=== PATIENT | female | born 1965 | race Caucasian/White ===

== ENCOUNTER 2017-11-18 10:01 | Emergency (ER) | payer MEDICAID ==
[~2017-11-18] VITALS: Ht 160 cm; Wt 63.5 kg
[~2017-11-18 10:01] MED LIST: AMITRIPTYLINE H10 MG ORAL; IBUPROFEN600 MG PO; INDOMETHACIN75 MG ORAL; NAPROXEN375 M2 ORAL; NORCO 5-325 TA1 EACH PO; NORCO1 EA ORAL; ROBAXIN500 MG PO; TRAMADOL HCL50 MG ORAL; ZITHROMAX250 MG ORAL; bp meds; flexeril; gabapentin; norco
--- NOTE | 2017-11-18 10:23 | Emergency Room Report ---
History of Present Illness General Chief Complaint: Abdominal Pain Present Illness HPI Patient is a 52-year-old female who presented after increased generalized abdominal pain. The patient was noted to have increased abdominal bloating. She had been seen last night with diagnosis of inguinal hernia and renal stone. Patient denied any flank pain she reported having pain to the upper abdomen. The pain was crampy in nature associated with a large amount of gas. Patient reports having had passed flatus. She denied any vomitingShe reports having prior history laparoscopic surgery at 13. She denies any fever. She denied any black or bloody stools. Denies alcohol use Allergies: Coded Allergies: No Known Allergies (Unverified , 02/18/13) Patient History Past Medical History: see triage record Now: No - NO MENES SINCE 2009 Reviewed Nursing Documentation: PMH: Agreed, PSxH: Agreed Nursing Documentation-PMH Hx Cardiac Problems: Yes - CHF 2 STENTS Hx Hypertension: No - CANCER UNKNOWN WHERE AND METH ABUSE Hx Gastrointestinal Problems: Yes - DIVERTICULITIS, ABD TUMORS Hx Neurological Problems: Yes - MIGRAINES, CHRONIC BACK PAIN Review of Systems All Other Systems: negative except mentioned in HPI Physical Exam Vital Signs Date Time Temp Pulse Resp B/P (MAP) Pulse Ox O2 Delivery O2 Flow Rate FiO2 11/18/17 09:58 98.4 111 16 124/88 99 Room Air Sp02 EP Interpretation: reviewed, normal General Appearance: normal inspection, well appearing, no apparent distress, alert, GCS 15 Head: atraumatic ENT: normal ENT inspection, hearing grossly normal, normal voice Neck: normal inspection, full range of motion, supple, no bony tend Respiratory: normal inspection, lungs clear, normal breath sounds, no respiratory distress, no retraction, no wheezing Cardiovascular #1: regular rate, rhythm, no edema Gastrointestinal: normal inspection, normal bowel sounds, non tender, soft, no guarding, no hernia Genitourinary: no CVA tenderness Musculoskeletal: normal inspection, back normal, normal range of motion Neurologic: normal inspection, alert, responsive, speech normal Psychiatric: normal inspection, judgement/insight normal, mood/affect normal Skin: normal inspection, normal color, no rash Medical Decision Making Diagnostic Impression: Primary Impression: Abdominal pain Additional Impressions: Gastritis Inguinal hernia ER Course Patient presented for abdominal pain. Differential diagnoses included ischemic bowel, appendicitis, perforated viscus, abdominal aortic aneurysm, inferior myocardial infarction, viral gastroenteritis. Because of complexity of patient' s case laboratory testing and imaging studies were ordered. The patient was given IV antiemetics as well as oral pain medications. Patient noted have improvement. Patient had the reducible inguinal hernias. There is no evidence of incarceration or strangulation. Patient was advised to see outpatient surgery for hernia repair. The patient is advised to follow up with primary care doctor in 1-2 days for recheck. Patient is advised to return if any worsening condition or if any changes in status that are concerning. This report is dictated with [employer] granite installer software which may occasionally lead to discrepancies related to use of this software. Labs Test 11/18/17 10:11 11/18/17 10:32 White Blood Count 5.7 K/UL (4.8-10.8) Red Blood Count 4.55 M/UL (4.20-5.40) Hemoglobin 14.2 G/DL (12.0-16.0) Hematocrit 41.4 % (37.0-47.0) Mean Corpuscular Volume 91 FL (80-99) Mean Corpuscular Hemoglobin 31.2 PG (27.0-31.0) Mean Corpuscular Hemoglobin Concent 34.2 G/DL (32.0-36.0) Red Cell Distribution Width 12.3 % (11.6-14.8) Platelet Count 238 K/UL (150-450) Mean Platelet Volume 7.5 FL (6.5-10.1) Neutrophils (%) (Auto) 53.3 % (45.0-75.0) Lymphocytes (%) (Auto) 30.4 % (20.0-45.0) Monocytes (%) (Auto) 8.7 % (1.0-10.0) Eosinophils (%) (Auto) 6.4 % (0.0-3.0) Basophils (%) (Auto) 1.3 % (0.0-2.0) Sodium Level 138 MMOL/L (136-145) Potassium Level 3.9 MMOL/L (3.5-5.1) Chloride Level 103 MMOL/L (98-107) Carbon Dioxide Level 28 MMOL/L (21-32) Anion Gap 7 mmol/L (5-15) Blood Urea Nitrogen 8 mg/dL (7-18) Creatinine 0.7 MG/DL (0.55-1.30) Estimat Glomerular Filtration Rate > 60 mL/min (>60) Glucose Level 87 MG/DL (74-106) Calcium Level 9.2 MG/DL (8.5-10.1) Total Bilirubin 0.3 MG/DL (0.2-1.0) Aspartate Amino Transf (AST/SGOT) 19 U/L (15-37) Alanine Aminotransferase (ALT/SGPT) 31 U/L (12-78) Alkaline Phosphatase 120 U/L (46-116) Total Protein 7.0 G/DL (6.4-8.2) Albumin 3.6 G/DL (3.4-5.0) Globulin 3.4 g/dL Albumin/Globulin Ratio 1.1 (1.0-2.7) Lipase 102 U/L (73-393) Urine Color Pale yellow Urine Appearance Clear Urine pH 7 (4.5-8.0) Urine Specific [place] 1.010 (1.005-1.035) Urine Protein Negative (NEGATIVE) Urine Glucose (UA) Negative (NEGATIVE) Urine Ketones Negative (NEGATIVE) Urine Occult Blood Negative (NEGATIVE) Urine Nitrite Negative (NEGATIVE) Urine Bilirubin Negative (NEGATIVE) Urine Urobilinogen Normal MG/DL (0.0-1.0) Urine Leukocyte Esterase 1+ (NEGATIVE) Urine RBC 0-2 /HPF (0 - 2) Urine WBC 2-4 /HPF (0 - 2) Urine Squamous Epithelial Cells Moderate /LPF (NONE/OCC) Urine Bacteria Few /HPF (NONE) Last Vital Signs Date Time Temp Pulse Resp B/P (MAP) Pulse Ox O2 Delivery O2 Flow Rate FiO2 11/18/17 09:58 98.4 111 16 124/88 99 Room Air Status: improved Disposition: HOME, SELF-CARE Condition: Stable Scripts Famotidine (PEPCID) 20 Mg Tablet 20 MG ORAL BEDTIME, #7 TAB 0 Refills Prov: Catarino Woods 11/18/17 Catarino Woods Nov 18, 2017 10:23
[2017-11-18 10:27] VITALS: BP 120/86
[2017-11-18] MEDS ORDERED: Dicyclomine HCl 10mg/5ml oral soln ORAL ONE (10:30)
[2017-11-18 10:37] LABS: BASOPHILS % (AUTO) 1.3 % (0.0-2.0); EOSINOPHILS % (AUTO) 6.4 % (0.0-3.0); HEMATOCRIT 41.4 % (37.0-47.0); HEMOGLOBIN 14.2 G/DL (12.0-16.0); LYMPHOCYTES % (AUTO) 30.4 % (20.0-45.0); MEAN CORPUSCULAR VOLUME 91 FL (80-99); MONOCYTES % (AUTO) 8.7 % (1.0-10.0); NEUTROPHILS % (AUTO) 53.3 % (45.0-75.0); PLATELET COUNT 238 K/UL (150-450); RED BLOOD COUNT 4.55 M/UL (4.20-5.40); RED CELL DISTRIBUTION WIDTH 12.3 % (11.6-14.8); WHITE BLOOD COUNT 5.7 K/UL (4.8-10.8)
[2017-11-18 10:44] LABS: ANION GAP 7 mmol/L (5-15); BLOOD UREA NITROGEN 8 mg/dL (7-18); CALCIUM 9.2 MG/DL (8.5-10.1); CARBON DIOXIDE 28 MMOL/L (21-32); CHLORIDE 103 MMOL/L (98-107); CREATININE 0.7 MG/DL (0.55-1.30); POTASSIUM 3.9 MMOL/L (3.5-5.1); SODIUM 138 MMOL/L (136-145)
[2017-11-18 10:49] LABS: ALANINE AMINOTRANSFERASE 31 U/L (12-78); ALBUMIN 3.6 G/DL (3.4-5.0); ALBUMIN/GLOBULIN RATIO 1.1 (1.0-2.7); ALKALINE PHOSPHATASE 120 U/L (46-116); ASPARTATE AMINO TRANSFERASE 19 U/L (15-37); BILIRUBIN,TOTAL 0.3 MG/DL (0.2-1.0)
[2017-11-18 11:05] LABS: APPEARANCE,URINE CLEAR; BILIRUBIN, URINE NEGATIVE (NEGATIVE); COLOR,URINE PALE YELLOW; GLUCOSE, URINE (UA) NEGATIVE (NEGATIVE); KETONES,URINE NEGATIVE (NEGATIVE); LEUKOCYTE ESTERASE ,URINE 1+ (NEGATIVE); NITRITE,URINE NEGATIVE (NEGATIVE); PH,URINE 7 (4.5-8.0); PROTEIN,URINE NEGATIVE (NEGATIVE); UROBILINOGEN,URINE NORMAL MG/DL (0.0-1.0)
[2017-11-18] MEDS ORDERED: PEPCID20 MG ORAL (11:23)
[2017-11-18 11:46] VITALS: BP 121/84
[2017-11-27] MEDS ORDERED: GABAPENTIN300 MG ORAL (13:53)
[2017-11-27] MEDS ORDERED: ASPIRIN81 MG ORAL (13:53)
[2017-11-27] MEDS ORDERED: ATORVASTATIN CA40 MG ORAL (13:53)
[2017-11-27] MEDS ORDERED: COLACE100 MG ORAL (13:53)
[2017-11-27] MEDS ORDERED: BRILINTA90 MG PO (13:53)
[2017-11-27] MEDS ORDERED: METOPROLOL SUCC25 MG ORAL (13:53)
[2017-11-27] MEDS ORDERED: LISINOPRIL20 MG ORAL (13:53)
[2017-11-27] MEDS ORDERED: OMEPRAZOLE40 M1 ORAL (13:53)
[2017-11-27] MEDS ORDERED: CYCLOBENZAPRINE10 MG ORAL (13:53)
[2017-11-27] MEDS ORDERED: DICYCLOMINE HCL10 MG PO (13:53)
== END 2017-11-18 11:47 | disposition home or self-care (01) ==
LOC: EDBD 10:01 → EMR 10:52
DX: R10.84 Generalized abdominal pain (principal); K29.70 Gastritis, unspecified, without bleeding; K40.90 Unilateral inguinal hernia, without obstruction or gangrene, not specified as recurrent; I50.9 Heart failure, unspecified; Z95.5 Presence of coronary angioplasty implant and graft; Z87.19 Personal history of other diseases of the digestive system
CPT/HCPCS: 36415; 80053; 81003; 83690; 85025; 99284

== ENCOUNTER → 2017-11-27 | Emergency (ER) | payer MEDICAID ==
[~2017-11-27] VITALS: Ht 165.1 cm; Wt 74.8 kg
[~2017-11-27] MED LIST changes: +ASPIRIN81 MG ORAL; +ATORVASTATIN CA40 MG ORAL; +BRILINTA90 MG PO; +COLACE100 MG ORAL; +CYCLOBENZAPRINE10 MG ORAL; +DICYCLOMINE HCL10 MG PO; +GABAPENTIN300 MG ORAL; +LISINOPRIL20 MG ORAL; +METOPROLOL SUCC25 MG ORAL; +OMEPRAZOLE40 M1 ORAL; +PEPCID20 MG ORAL
--- NOTE | 2017-11-27 12:28 | Emergency Room Report ---
History of Present Illness General Chief Complaint: Chest Pain Source: Patient Present Illness HPI 52-year-old female presents to the emergency department complaining of several intermittent episodes of palpitations since this a.m. Patient denies chest pain she denies shortness of breath she reports that she does temporarily feel dizzy. Upon arrival patient states that her symptoms resolved however when she got up to go to the bathroom to give urine her symptoms returned. She states that she had a near syncopal episode yesterday she denies hitting her head. She reports having weakness that resolved after one hour post near syncopal episode. She denies fevers or chills she reports vomiting and diarrhea "for a long time". She has a history of ID, TIA, HTN, hyperlipidemia and Psych. Patient takes blood thinning medication. Denies recent travel. She denies cough or sputum production. Denies drug use, night sweats or significant changes in weight. She denies lower extremity edema or calf pains.Denies Changes in Vision, Sensation, paresthesias, or a sudden severe headache. Allergies: Coded Allergies: No Known Allergies (Unverified , 02/18/13) Patient History Past Medical History: HTN, ID, CHF, GERD, migraines, other - hx of TIA Now: No Reviewed Nursing Documentation: PMH: Agreed, PSxH: Agreed Nursing Documentation-PMH Hx Cardiac Problems: Yes Hx Hypertension: No - CANCER UNKNOWN WHERE AND METH ABUSE Hx Diabetes: Yes Hx Gastrointestinal Problems: Yes - DIVERTICULITIS, ABD TUMORS Hx Neurological Problems: Yes - MIGRAINES, CHRONIC BACK PAIN Review of Systems All Other Systems: negative except mentioned in HPI Physical Exam Vital Signs Date Time Temp Pulse Resp B/P (MAP) Pulse Ox O2 Delivery O2 Flow Rate FiO2 11/27/17 12:02 97.8 76 16 110/70 98 97.9 Sp02 EP Interpretation: reviewed, normal General Appearance: no apparent distress, alert, GCS 15, non-toxic Head: normocephalic, atraumatic ENT: hearing grossly normal, normal voice Neck: full range of motion Respiratory: chest non-tender, lungs clear, normal breath sounds, no respiratory distress, no accessory muscle use, no wheezing, speaking full sentences Cardiovascular #1: regular rate, rhythm, no edema, no JVD, normal capillary refill Gastrointestinal: normal bowel sounds, non tender, soft Musculoskeletal: back normal, gait/station normal, normal range of motion, non- tender Neurologic: alert, oriented x3, responsive, motor strength/tone normal, sensory intact, normal gait, speech normal, grossly normal Psychiatric: judgement/insight normal Skin: normal color, no rash, warm/dry, well hydrated Medical Decision Making PA Attestation Dr. Buchanan is my supervising Physician whom patient management has been discussed with. Diagnostic Impression: Primary Impression: Intermittent palpitations ER Course 52-year-old female presents to the emergency department complaining of several intermittent episodes of palpitations since this a.m. Patient denies chest pain she denies shortness of breath she reports that she does temporarily feel dizzy. Upon arrival patient states that her symptoms resolved however when she got up to go to the bathroom to give urine her symptoms returned. She states that she had a near syncopal episode yesterday she denies hitting her head. She reports having weakness that resolved after one hour post near syncopal episode. She denies fevers or chills she reports vomiting and diarrhea "for a long time". She has a history of ID, TIA, HTN, hyperlipidemia and Psych. Patient takes blood thinning medication. Denies recent travel. She denies cough or sputum production. Denies drug use, night sweats or significant changes in weight. She denies lower extremity edema or calf pains.Denies Changes in Vision, Sensation, paresthesias, or a sudden severe headache. Ddx considered but are not limited to ID, pneumonia, contusion, costochondritis , PE, ACS, Shoulder strain, Chest wall contusion. aortic dissection. Vital signs: are WNL, pt. is afebrile H&PE are most consistent with intermittent palpitations ORDERS: - OrthoStatic VS: Negative - EKBpm NSR -CBC: Unremarkable -CMP: Unremarkable -PT/PTT: WNL -Troponins : WNL CXR: Unremarkable -UDS: negative -UA: WNL -TSH: mildly elevated ED INTERVENTIONS: - PT. placed on cardiac monitoring. Frequent re-evaluations: pt. continues to be non-tachycardic without return of palpitations. BP WNL and stable. d/w pt. that she should contact and follow up with her oil seal assembler and her PCP within 48 hours and to bring a copy of her lab work for further evaluation of abnormal TSH results. Pt. also given a copy of her EKG to take with her. DISCHARGE: At this time pt. is stable for d/c to home. Will provide printed patient care instructions, and any necessary prescriptions. Care plan and follow up instructions have been discussed with the patient prior to discharge. Labs Test 11/27/17 12:20 White Blood Count 6.7 K/UL (4.8-10.8) Red Blood Count 4.56 M/UL (4.20-5.40) Hemoglobin 14.1 G/DL (12.0-16.0) Hematocrit 41.6 % (37.0-47.0) Mean Corpuscular Volume 91 FL (80-99) Mean Corpuscular Hemoglobin 30.8 PG (27.0-31.0) Mean Corpuscular Hemoglobin Concent 33.8 G/DL (32.0-36.0) Red Cell Distribution Width 12.3 % (11.6-14.8) Platelet Count 263 K/UL (150-450) Mean Platelet Volume 7.5 FL (6.5-10.1) Neutrophils (%) (Auto) 51.6 % (45.0-75.0) Lymphocytes (%) (Auto) 32.2 % (20.0-45.0) Monocytes (%) (Auto) 8.1 % (1.0-10.0) Eosinophils (%) (Auto) 6.7 % (0.0-3.0) Basophils (%) (Auto) 1.4 % (0.0-2.0) Prothrombin Time 9.8 SEC (9.30-11.50) Prothromb Time International Ratio 0.9 (0.9-1.1) Activated Partial Thromboplast Time 28 SEC (23-33) Urine Color Pale yellow Urine Appearance Clear Urine pH 7 (4.5-8.0) Urine Specific [place] 1.010 (1.005-1.035) Urine Protein Negative (NEGATIVE) Urine Glucose (UA) Negative (NEGATIVE) Urine Ketones Negative (NEGATIVE) Urine Occult Blood Negative (NEGATIVE) Urine Nitrite Negative (NEGATIVE) Urine Bilirubin Negative (NEGATIVE) Urine Urobilinogen Normal MG/DL (0.0-1.0) Urine Leukocyte Esterase Negative (NEGATIVE) Sodium Level 135 MMOL/L (136-145) Potassium Level 4.2 MMOL/L (3.5-5.1) Chloride Level 99 MMOL/L (98-107) Carbon Dioxide Level 30 MMOL/L (21-32) Anion Gap 6 mmol/L (5-15) Blood Urea Nitrogen 14 mg/dL (7-18) Creatinine 1.0 MG/DL (0.55-1.30) Estimat Glomerular Filtration Rate 58.0 mL/min (>60) Glucose Level 88 MG/DL (74-106) Calcium Level 9.8 MG/DL (8.5-10.1) Total Bilirubin 0.2 MG/DL (0.2-1.0) Aspartate Amino Transf (AST/SGOT) 26 U/L (15-37) Alanine Aminotransferase (ALT/SGPT) 39 U/L (12-78) Alkaline Phosphatase 124 U/L (46-116) Total Creatine Kinase 184 U/L (26-308) Troponin I 0.017 ng/mL (0.000-0.056) Pro-B-Type Natriuretic Peptide 117 pg/mL (0-125) Total Protein 7.6 G/DL (6.4-8.2) Albumin 4.0 G/DL (3.4-5.0) Globulin 3.6 g/dL Albumin/Globulin Ratio 1.1 (1.0-2.7) Thyroid Stimulating Hormone (TSH) 5.478 uiU/mL (0.358-3.740) Urine Opiates Screen Negative (NEGATIVE) Urine Barbiturates Screen Negative (NEGATIVE) Phencyclidine (PCP) Screen Negative (NEGATIVE) Urine Amphetamines Screen Negative (NEGATIVE) Urine Benzodiazepines Screen Negative (NEGATIVE) Urine Cocaine Screen Negative (NEGATIVE) Urine Marijuana (THC) Screen Negative (NEGATIVE) EKG Diagnostic Results EP Interpretation: Dr. Buchanan Rate: normal - 72 bpm Rhythm: NSR ST Segments: no acute changes Other Impression T-wave inversion in V2 ASA given to the pt in ED: No PA Scribe Text this interpretation was scribed by DEMI Griffith Chest X-Ray Diagnostic Results Chest X-Ray Diagnostic Results : Chest X-Ray Ordered: Yes # of Views/Limited/Complete: 1 View Indication: Chest Pain EP Interpretation: Yes PA Xray: Interpretation reviewed, by supervising MD, and agrees with findings. Interpretation: no consolidation, no effusion, no pneumothorax, no acute cardiopulmonary disease Impression: No acute disease Electronically Signed by: Pam Griffith PA-C Last Vital Signs Date Time Temp Pulse Resp B/P (MAP) Pulse Ox O2 Delivery O2 Flow Rate FiO2 11/27/17 12:02 97.8 76 16 110/70 98 97.9 Disposition: HOME, SELF-CARE Condition: Stable Patient Instructions: Palpitations Additional Instructions: Continue to take any previously prescribed medications as directed. Follow up with your GOSPEL WORKER within 1-2 days, even if your symptoms have resolved. --Please review list of primary care clinics, if you do not already have a primary care provider -- Your TSH level was elevated, have your primary care provided evaluate your thyroid function. Return sooner to ED if new symptoms occur, or current symptoms become worse. - Please note that this Emergency Department Report was dictated using [employer] machine operator technology software, occasionally this can lead to erroneous entry secondary to interpretation by the dictation equipment. Pam Griffith Nov 27, 2017 12:28
[2017-11-27 12:36] VITALS: BP 106/72
[2017-11-27 12:43] LABS: BASOPHILS % (AUTO) 1.4 % (0.0-2.0); EOSINOPHILS % (AUTO) 6.7 % (0.0-3.0); HEMATOCRIT 41.6 % (37.0-47.0); HEMOGLOBIN 14.1 G/DL (12.0-16.0); LYMPHOCYTES % (AUTO) 32.2 % (20.0-45.0); MEAN CORPUSCULAR VOLUME 91 FL (80-99); MONOCYTES % (AUTO) 8.1 % (1.0-10.0); NEUTROPHILS % (AUTO) 51.6 % (45.0-75.0); PLATELET COUNT 263 K/UL (150-450); RED BLOOD COUNT 4.56 M/UL (4.20-5.40); RED CELL DISTRIBUTION WIDTH 12.3 % (11.6-14.8); WHITE BLOOD COUNT 6.7 K/UL (4.8-10.8)
[2017-11-27 12:46] LABS: APPEARANCE,URINE CLEAR; BILIRUBIN, URINE NEGATIVE (NEGATIVE); COLOR,URINE PALE YELLOW; GLUCOSE, URINE (UA) NEGATIVE (NEGATIVE); KETONES,URINE NEGATIVE (NEGATIVE); LEUKOCYTE ESTERASE ,URINE NEGATIVE (NEGATIVE); NITRITE,URINE NEGATIVE (NEGATIVE); PH,URINE 7 (4.5-8.0); PROTEIN,URINE NEGATIVE (NEGATIVE); UROBILINOGEN,URINE NORMAL MG/DL (0.0-1.0)
[2017-11-27 12:49] VITALS: BP_SYST 101; BP_SYST 96; BP_SYST 98; BP_DIAS 64; BP_DIAS 70; BP_DIAS 78
[2017-11-27 13:02] LABS: INR 0.9 (0.9-1.1)
[2017-11-27 13:14] LABS: ANION GAP 6 mmol/L (5-15); BLOOD UREA NITROGEN 14 mg/dL (7-18); CALCIUM 9.8 MG/DL (8.5-10.1); CARBON DIOXIDE 30 MMOL/L (21-32); CHLORIDE 99 MMOL/L (98-107); POTASSIUM 4.2 MMOL/L (3.5-5.1); SODIUM 135 MMOL/L (136-145)
[2017-11-27 13:20] LABS: CREATINE KINASE 184 U/L (26-308)
[2017-11-27 13:24] LABS: ALANINE AMINOTRANSFERASE 39 U/L (12-78); ALBUMIN/GLOBULIN RATIO 1.1 (1.0-2.7); ALKALINE PHOSPHATASE 124 U/L (46-116); ASPARTATE AMINO TRANSFERASE 26 U/L (15-37); BILIRUBIN,TOTAL 0.2 MG/DL (0.2-1.0)
[2017-11-27 14:19] VITALS: BP 104/63
--- NOTE | 2017-11-27 14:23 | Diagnostic Imaging Report ---
Indication: Chest pain Technique: One view of the chest Comparison: none Findings: Lungs and pleural spaces are clear. Heart size is normal. Thoracolumbar scoliotic deformity is noted. Impression: No acute process
--- NOTE | 2017-11-28 15:22 | Cardiology Report ---
APPROVED REPORT EKG Measurement Heart [id number] Normal sinus rhythm Possible Left atrial enlargement Incomplete right bundle branch block Borderline ECG
== END | disposition home or self-care (01) ==
LOC: EDUNIT# 11:36 → EDBD 12:01 → EMR 12:25
DX: R00.2 Palpitations (principal); E11.9 Type 2 diabetes mellitus without complications; K57.90 Diverticulosis of intestine, part unspecified, without perforation or abscess without bleeding; G89.29 Other chronic pain; I10 Essential (primary) hypertension; I25.2 Old myocardial infarction; I50.9 Heart failure, unspecified; K21.9 Gastro-esophageal reflux disease without esophagitis; Z86.73 Personal history of transient ischemic attack (TIA), and cerebral infarction without residual deficits; E78.5 Hyperlipidemia, unspecified
CPT/HCPCS: 36415; 71045; 80053; 80307; 81003; 82550; 83880; 84443; 84484; 85025; 85610; 85730; 93005; 96361; 96374; 99284

== ENCOUNTER 2018-04-04 14:54 | Emergency (ER) | payer MEDICAID ==
[~2018-04-04] VITALS: Ht 165.1 cm; Wt 72.6 kg
--- NOTE | 2018-04-04 14:57 | Emergency Room Report ---
History of Present Illness General Chief Complaint: Chest Pain Source: Patient Present Illness HPI Patient is a 52-year-old female who presented after increased chest discomfort. Patient reports having increased chest pressure starting about 1-1/2 hours prior to arrival. Patient been seen by EMS. Patient been given aspirin the patient was having prior history of coronary artery disease and is currently a smoker. She reports having some increased pulling sensation and tightness to the upper abdomen. She reports having prior history of drug use but denies recent drugs and states she's been clean for several months. The patient reports having onset during exertion. She reports having some bilateral arm numbness associated with some pain in the neck and jaw. Reports having primary care physician in [place]. Allergies: Coded Allergies: No Known Allergies (Unverified , 02/18/13) Patient History Past Medical History: other - Raynauds Reviewed Nursing Documentation: PMH: Agreed; PSxH: Agreed Review of Systems All Other Systems: negative except mentioned in HPI Physical Exam Vital Signs Date Time Temp Pulse Resp B/P (MAP) Pulse Ox O2 Delivery O2 Flow Rate FiO2 04/04/18 14:41 97.0 107 18 113/68 98 Nasal Cannula 97.0 Sp02 EP Interpretation: reviewed, normal General Appearance: normal inspection, well appearing, no apparent distress, alert, GCS 15, Chronically Ill Head: atraumatic ENT: normal ENT inspection, hearing grossly normal, normal voice Neck: normal inspection, full range of motion, supple, no bony tend Respiratory: normal inspection, lungs clear, normal breath sounds, no respiratory distress, no retraction, no wheezing Cardiovascular #1: regular rate, rhythm, no edema Gastrointestinal: normal inspection, normal bowel sounds, non tender, soft, no guarding, no hernia Genitourinary: no CVA tenderness Musculoskeletal: normal inspection, back normal, normal range of motion Neurologic: normal inspection, alert, oriented x3, responsive, side stitching machine operator III-XII nml as tested, speech normal Psychiatric: normal inspection, judgement/insight normal, mood/affect normal Skin: normal inspection, normal color, no rash Medical Decision Making Diagnostic Impression: Primary Impression: Chest pain Additional Impression: ACS (acute coronary syndrome) ER Course patient presented for chest pain. Differential diagnosis included but was not limited to acute coronary syndrome, pulmonary embolism, pneumonia, aortic dissection, shingles, pneumothorax, aortic dissection, esophageal rupture, pericarditis. Because of complexity of patient's case laboratory testing and imaging studies were ordered.The patient was given aspirin by EMS. The patient was noted to have some concerning past medical history in terms of prior coronary disease. The patient was discussed with from [facility] who agreed to accept the patient in transfer for [facility] facility. Patient appears to be stable for transfer. Labs Test 04/04/18 15:02 04/04/18 15:55 White Blood Count 8.3 K/UL (4.8-10.8) Red Blood Count 4.34 M/UL (4.20-5.40) Hemoglobin 13.7 G/DL (12.0-16.0) Hematocrit 39.3 % (37.0-47.0) Mean Corpuscular Volume 91 FL (80-99) Mean Corpuscular Hemoglobin 31.7 PG (27.0-31.0) Mean Corpuscular Hemoglobin Concent 34.9 G/DL (32.0-36.0) Red Cell Distribution Width 12.0 % (11.6-14.8) Platelet Count 265 K/UL (150-450) Mean Platelet Volume 7.6 FL (6.5-10.1) Neutrophils (%) (Auto) 58.6 % (45.0-75.0) Lymphocytes (%) (Auto) 26.8 % (20.0-45.0) Monocytes (%) (Auto) 8.8 % (1.0-10.0) Eosinophils (%) (Auto) 4.3 % (0.0-3.0) Basophils (%) (Auto) 1.6 % (0.0-2.0) Sodium Level 141 MMOL/L (136-145) Potassium Level 3.2 MMOL/L (3.5-5.1) Chloride Level 103 MMOL/L (98-107) Carbon Dioxide Level 24 MMOL/L (21-32) Anion Gap 14 mmol/L (5-15) Blood Urea Nitrogen 10 mg/dL (7-18) Creatinine 0.8 MG/DL (0.55-1.30) Estimat Glomerular Filtration Rate > 60 mL/min (>60) Glucose Level 133 MG/DL (74-106) Calcium Level 9.0 MG/DL (8.5-10.1) Total Bilirubin 0.4 MG/DL (0.2-1.0) Aspartate Amino Transf (AST/SGOT) 24 U/L (15-37) Alanine Aminotransferase (ALT/SGPT) 32 U/L (12-78) Alkaline Phosphatase 120 U/L (46-116) Total Creatine Kinase 313 U/L (26-308) Creatine Kinase MB 5.3 NG/ML (0.0-3.6) Creatine Kinase MB Relative Index 1.6 Troponin I 0.000 ng/mL (0.000-0.056) Pro-B-Type Natriuretic Peptide 248 pg/mL (0-125) Total Protein 7.1 G/DL (6.4-8.2) Albumin 3.6 G/DL (3.4-5.0) Globulin 3.5 g/dL Albumin/Globulin Ratio 1.0 (1.0-2.7) Urine Color Yellow Urine Appearance Clear Urine pH 5 (4.5-8.0) Urine Specific [place] 1.020 (1.005-1.035) Urine Protein 1+ (NEGATIVE) Urine Glucose (UA) Negative (NEGATIVE) Urine Ketones Negative (NEGATIVE) Urine Occult Blood 1+ (NEGATIVE) Urine Nitrite Negative (NEGATIVE) Urine Bilirubin Negative (NEGATIVE) Urine Urobilinogen 4 MG/DL (0.0-1.0) Urine Leukocyte Esterase 1+ (NEGATIVE) Urine RBC 2-4 /HPF (0 - 2) Urine WBC 0-2 /HPF (0 - 2) Urine Squamous Epithelial Cells Few /LPF (NONE/OCC) Urine Bacteria Few /HPF (NONE) Last Vital Signs Date Time Temp Pulse Resp B/P (MAP) Pulse Ox O2 Delivery O2 Flow Rate FiO2 04/04/18 14:41 97.0 107 18 113/68 98 Nasal Cannula 97.0 Status: improved Disposition: XFER SHT-TRM HOSP Condition: Stable Catarino Woods MD Apr 04, 2018 14:57
[2018-04-04 15:11] VITALS: BP 107/77
[2018-04-04] MEDS ORDERED: Albuterol/Ipratropium 3ml neb HHN ONE (15:30)
--- NOTE | 2018-04-04 15:36 | Diagnostic Imaging Report ---
Indication: Dyspnea Comparison: 11/27/2017 A single view chest radiograph was obtained. Findings: Cardiomediastinal appearance is within normal limits for age. Pulmonary vascularity is appropriate. The diaphragmatic contour is smooth and costophrenic angles are sharp. No pleural effusions are identified. The bones are unremarkable. Impression: No acute findings
[2018-04-04 15:39] LABS: BASOPHILS % (AUTO) 1.6 % (0.0-2.0); EOSINOPHILS % (AUTO) 4.3 % (0.0-3.0); HEMATOCRIT 39.3 % (37.0-47.0); HEMOGLOBIN 13.7 G/DL (12.0-16.0); LYMPHOCYTES % (AUTO) 26.8 % (20.0-45.0); MEAN CORPUSCULAR VOLUME 91 FL (80-99); MONOCYTES % (AUTO) 8.8 % (1.0-10.0); NEUTROPHILS % (AUTO) 58.6 % (45.0-75.0); PLATELET COUNT 265 K/UL (150-450); RED BLOOD COUNT 4.34 M/UL (4.20-5.40); WHITE BLOOD COUNT 8.3 K/UL (4.8-10.8)
[2018-04-04 15:55] LABS: ANION GAP 14 mmol/L (5-15); BLOOD UREA NITROGEN 10 mg/dL (7-18); CARBON DIOXIDE 24 MMOL/L (21-32); CHLORIDE 103 MMOL/L (98-107); CREATININE 0.8 MG/DL (0.55-1.30); POTASSIUM 3.2 MMOL/L (3.5-5.1); SODIUM 141 MMOL/L (136-145)
[2018-04-04 16:06] LABS: ALANINE AMINOTRANSFERASE 32 U/L (12-78); ALBUMIN 3.6 G/DL (3.4-5.0); ALKALINE PHOSPHATASE 120 U/L (46-116); ASPARTATE AMINO TRANSFERASE 24 U/L (15-37); BILIRUBIN,TOTAL 0.4 MG/DL (0.2-1.0); CKMB 5.3 NG/ML (0.0-3.6); CREATINE KINASE 313 U/L (26-308)
[2018-04-04 16:31] LABS: APPEARANCE,URINE CLEAR; BILIRUBIN, URINE NEGATIVE (NEGATIVE); GLUCOSE, URINE (UA) NEGATIVE (NEGATIVE); KETONES,URINE NEGATIVE (NEGATIVE); LEUKOCYTE ESTERASE ,URINE 1+ (NEGATIVE); NITRITE,URINE NEGATIVE (NEGATIVE); PH,URINE 5 (4.5-8.0); PROTEIN,URINE 1+ (NEGATIVE); UROBILINOGEN,URINE 4 MG/DL (0.0-1.0)
[2018-04-04 16:35] LABS: COLOR,URINE YELLOW
[2018-04-04 18:50] VITALS: BP 107/77
== END 2018-04-04 18:51 | disposition left against medical advice (07) ==
LOC: EDBD 14:54 → EMR 15:26
DX: I24.9 Acute ischemic heart disease, unspecified (principal)
CPT/HCPCS: 36415; 71045; 80053; 81003; 82550; 82553; 83880; 84484; 85025; 93005; 94640; 94664; 99283; J7620; J8499

== ENCOUNTER 2018-04-24 19:13 | Emergency (ER) | payer MEDICAID ==
[~2018-04-24] VITALS: Ht 160 cm; Wt 61.7 kg
[~2018-04-24 19:13] MED LIST changes: +GABAPENTIN100 MG ORAL; +LISINOPRIL5 MG ORAL; +METOPROLOL TART25 MG ORAL; +OMEPRAZOLE10 M1 ORAL
[2018-04-24 19:25] VITALS: BP 144/92
[2018-04-24 20:25] VITALS: BP 136/92
[2018-04-24 21:25] VITALS: BP 138/88
[2018-04-24 21:37] LABS: BASOPHILS % (AUTO) 1.6 % (0.0-2.0); EOSINOPHILS % (AUTO) 4.2 % (0.0-3.0); HEMATOCRIT 42.5 % (37.0-47.0); HEMOGLOBIN 14.6 G/DL (12.0-16.0); MEAN CORPUSCULAR VOLUME 89 FL (80-99); MONOCYTES % (AUTO) 7.2 % (1.0-10.0); NEUTROPHILS % (AUTO) 59.1 % (45.0-75.0); PLATELET COUNT 291 K/UL (150-450); RED BLOOD COUNT 4.76 M/UL (4.20-5.40); WHITE BLOOD COUNT 8.9 K/UL (4.8-10.8)
--- NOTE | 2018-04-24 21:42 | Emergency Room Report ---
History of Present Illness General Chief Complaint: Abdominal Pain Source: Patient (Pam Griffith) Present Illness HPI 52-year-old female presents to emergency Department complaining of choking sensation and inability to intake oral fluids or solids. 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 Patient states that onset of her symptoms were 3 days ago and her symptoms have been progressive. denies SOB, or dyspnea. Denies cough, fevers, or chills. pt, reports vomiting food/liquids after attempts to eat. pt. denies nausea. pt. reports some 4/10 in severity epigastric pain. (Pam Griffith) Allergies: Coded Allergies: No Known Allergies (Unverified , 02/18/13) Patient History Past Medical History: see triage record Past Surgical History: none Pertinent Family History: none Now: No (Pam Griffith) Nursing Documentation-H Hx Cardiac Problems: Yes - CHF, stent Hx Hypertension: Yes Hx Diabetes: Yes Hx Gastrointestinal Problems: Yes - ulcer, hernia Hx Neurological Problems: Yes - MIGRAINES, CHRONIC BACK PAIN (Pam Griffith) Review of Systems All Other Systems: negative except mentioned in HPI (Pam Griffith) Physical Exam Vital Signs Date Time Temp Pulse Resp B/P (MAP) Pulse Ox O2 Delivery O2 Flow Rate FiO2 04/24/18 19:08 97.7 90 18 144/92 100 Room Air 97.7 Sp02 EP Interpretation: reviewed, normal General Appearance: no apparent distress, alert, GCS 15, non-toxic Head: normocephalic, atraumatic Eyes: bilateral eye normal inspection, bilateral eye PERRL ENT: hearing grossly normal, normal pharynx, normal voice Neck: full range of motion, supple, no bony tend Respiratory: chest non-tender, lungs clear, normal breath sounds, no wheezing, speaking full sentences Cardiovascular #1: regular rate, rhythm, normal capillary refill Gastrointestinal: normal bowel sounds, non tender, soft Rectal: deferred Genitourinary: normal inspection Musculoskeletal: back normal, gait/station normal, normal range of motion, non- tender Neurologic: alert, oriented x3, responsive, motor strength/tone normal, sensory intact, normal gait, speech normal, grossly normal Psychiatric: judgement/insight normal Skin: normal color, no rash, warm/dry, well hydrated Lymphatic: no adenopathy (Pam Griffith) Medical Decision Making PA Attestation Dr. Rodriguez is my supervising Physician whom patient management has been discussed with. (Pam Griffith) Diagnostic Impression: Primary Impression: Schatzki's ring Additional Impressions: History of esophageal dilatation Dysphagia Qualified Codes: R13.10 - Dysphagia, unspecified ER Course 52-year-old female presents to emergency Department complaining of choking sensation and inability to intake oral fluids or solids. 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 Patient states that onset of her symptoms were 3 days ago and her symptoms have been progressive. denies SOB, or dyspnea. Denies cough, fevers, or chills. pt, reports vomiting food/liquids after attempts to eat. pt. denies nausea. pt. reports some 4/10 in severity epigastric pain. Ddx considered but are not limited to Esophageal foreign body, Schatzki's ring complication, airway obstruction, or inability to tolerate secretions just to name a few Vital signs: are WNL, pt. is afebrile H&PE are most consistent with in ability to tolerate oral secretions. Persistent choking sensation. no evidence of complete airway obstruction at this time. ORDERS: -CBC: WNL -CMP: electrolytes ok- WNL -Lipase: pending -CXR: WNL ED INTERVENTIONS: None required at this time. DISPOSITION: at this time pt. will be admitted to Dr. Camarena at [facility] for Dysphagia and choking episodes. Dr. Camarena agreed to admit the pt. and to continue pt. care management. Labs Test 04/24/18 21:05 White Blood Count 8.9 K/UL (4.8-10.8) Red Blood Count 4.76 M/UL (4.20-5.40) Hemoglobin 14.6 G/DL (12.0-16.0) Hematocrit 42.5 % (37.0-47.0) Mean Corpuscular Volume 89 FL (80-99) Mean Corpuscular Hemoglobin 30.7 PG (27.0-31.0) Mean Corpuscular Hemoglobin Concent 34.4 G/DL (32.0-36.0) Red Cell Distribution Width 12.0 % (11.6-14.8) Platelet Count 291 K/UL (150-450) Mean Platelet Volume 7.5 FL (6.5-10.1) Neutrophils (%) (Auto) 59.1 % (45.0-75.0) Lymphocytes (%) (Auto) 28.0 % (20.0-45.0) Monocytes (%) (Auto) 7.2 % (1.0-10.0) Eosinophils (%) (Auto) 4.2 % (0.0-3.0) Basophils (%) (Auto) 1.6 % (0.0-2.0) Sodium Level 141 MMOL/L (136-145) Potassium Level 3.6 MMOL/L (3.5-5.1) Chloride Level 103 MMOL/L (98-107) Carbon Dioxide Level 29 MMOL/L (21-32) Anion Gap 9 mmol/L (5-15) Blood Urea Nitrogen 12 mg/dL (7-18) Creatinine 0.9 MG/DL (0.55-1.30) Estimat Glomerular Filtration Rate > 60 mL/min (>60) Glucose Level 93 MG/DL (74-106) Calcium Level 9.4 MG/DL (8.5-10.1) Total Bilirubin 0.4 MG/DL (0.2-1.0) Aspartate Amino Transf (AST/SGOT) 23 U/L (15-37) Alanine Aminotransferase (ALT/SGPT) 32 U/L (12-78) Alkaline Phosphatase 142 U/L (46-116) Total Protein 8.0 G/DL (6.4-8.2) Albumin 4.2 G/DL (3.4-5.0) Globulin 3.8 g/dL Albumin/Globulin Ratio 1.1 (1.0-2.7) Lipase 112 U/L (73-393) (Pam Griffith) ER Course Patient presents with dysphasia. She has a history of esophageal narrowing that required dilatation. She claimed that her symptom worsen because she fell down the stairs few days ago. She has an appointment with her GI doctor but was rescheduled. This patient was signed out to me pending transfer to [facility]. She's been here 6 hours now and they do not have a bed for transfer. She's been stable. No evidence of any obstruction. She has no drooling area. Initially she told the PA that she had food stuck there. I was able to pass an NG tube without difficulty. She pulled it out before and dilate to see if there is any food product. She then drank a whole cup of water without difficulty. No choking. Since this is a chronic issue I see no need for admission or transfer. We'll discharge home. (KAMLA WILLARD M.D.) Chest X-Ray Diagnostic Results Chest X-Ray Diagnostic Results : Chest X-Ray Ordered: Yes # of Views/Limited/Complete: 1 View Indication: Chest Pain EP Interpretation: Yes DEMI Xray: Interpretation reviewed, by supervising MD, and agrees with findings. Interpretation: no consolidation, no effusion, no pneumothorax, no acute cardiopulmonary disease Impression: No acute disease Electronically Signed by: Pam Griffith PA-C (Pam Griffith) Last Vital Signs Date Time Temp Pulse Resp B/P (MAP) Pulse Ox O2 Delivery O2 Flow Rate FiO2 04/24/18 19:25 97.7 18 144/92 100 Room Air 97.7 04/24/18 19:08 90 (Pam Griffith) Status: improved (KAMLA WILLARD M.D.) Disposition: HOME, SELF-CARE Condition: Stable Referrals: NON PHYSICIAN (PCP) Additional Instructions: Follow-up with your GI doctor as soon as possible. Liquid diet for now. Return if symptom worsen. Pam Griffith Apr 24, 2018 21:42 KAMLA WILLARD M.D. Apr 25, 2018 01:03
[2018-04-24 21:50] LABS: ANION GAP 9 mmol/L (5-15); BLOOD UREA NITROGEN 12 mg/dL (7-18); CALCIUM 9.4 MG/DL (8.5-10.1); CARBON DIOXIDE 29 MMOL/L (21-32); CHLORIDE 103 MMOL/L (98-107); CREATININE 0.9 MG/DL (0.55-1.30); POTASSIUM 3.6 MMOL/L (3.5-5.1); SODIUM 141 MMOL/L (136-145)
[2018-04-24 21:55] LABS: ALANINE AMINOTRANSFERASE 32 U/L (12-78); ALBUMIN 4.2 G/DL (3.4-5.0); ALBUMIN/GLOBULIN RATIO 1.1 (1.0-2.7); ALKALINE PHOSPHATASE 142 U/L (46-116); ASPARTATE AMINO TRANSFERASE 23 U/L (15-37); BILIRUBIN,TOTAL 0.4 MG/DL (0.2-1.0)
[2018-04-24 22:25] VITALS: BP 127/76
[2018-04-24 23:25] VITALS: BP 133/79
[2018-04-25 00:25] VITALS: BP 127/79
[2018-04-25 01:15] VITALS: BP 127/79
--- NOTE | 2018-04-25 09:05 | Diagnostic Imaging Report ---
Indication: Reason For Exam: PAIN Technique: One view of the chest Comparison: 04/04/2018 Findings: Lungs and pleural spaces are clear. Heart size is normal. There is thoracolumbar scoliotic deformity with secondary degenerative changes incidentally noted . No significant interim change Impression: No acute process
== END 2018-04-25 01:15 | disposition home or self-care (01) ==
LOC: EDBD 19:13 → EMR 19:45
DX: K22.2 Esophageal obstruction (principal); R13.10 Dysphagia, unspecified; I11.0 Hypertensive heart disease with heart failure; I50.9 Heart failure, unspecified; E11.9 Type 2 diabetes mellitus without complications
CPT/HCPCS: 36415; 71045; 80053; 83690; 85025; 96361; 96374; 99283; S0028